=== PATIENT | female | born 1980 | race Caucasian/White ===

== ENCOUNTER 2022-07-01 11:18 | Day surgery (SDC) | payer MEDICAID ==
[~2022-07-01] VITALS: Ht 154.9 cm; Wt 61.8 kg
[~2022-07-01 11:18] MED LIST: BASAGLAR K100 UNIT/1 SQ; FLEXERIL5 MG PO; LEXAPRO 10MG10 MG PO; LIPITOR 40MG TA40 MG PO; NEURONTIN300 MG/CAP PO; NORCO 325 MG-51 TAB PO; NOVOLOGMIX70/30 SQ; PROAMATINE 5MG T5 MG PO
[2022-07-01] MEDS ORDERED: LANTUS SOLOS100 U/ML SQ (11:44)
[2022-07-01] MEDS ORDERED: INSULIN LI100 UNIT/2 SQ (11:44)
[2022-07-01] MEDS ORDERED: ZOFRAN 4MG T4 MG/TAB PO (11:45)
[2022-07-01 13:25] VITALS: BP 102/70; PULSE 73; TEMP 97.1
[2022-07-01 13:40] VITALS: BP 103/75; PULSE 63
[2022-07-01 13:55] VITALS: BP 103/70; PULSE 61
--- NOTE | 2022-07-01 14:20 | NUR ---
1325-PT TO BAY 3 PER CART FROM PROCEDURE ROOM. RECEIVED REPORT. VS OBTAINED. CALL LIGHT WITH IN REACH. PT DENIES ANY NEEDS AT THIS TIME. 1340-PT TOLERATING JUICE, MUFFIN, AND PUDDING. 1345-DR HARMAN IN ROOM DISCUSSING FINDINGS FROM PROCEDURE WITH PT AND HER . 1410-IV DC'D AT THIS TIME. PT ABLE TO DRESS SELF WITHOUT ANY ASSISTANCE. 1415-DISCHARGE EDUCATION COMPLETED WITH PT AND HER . VERBALIZED UNDERSTANDING OF HOME AND FOLLOW UP CARE. ALL QUESTIONS ANSWERED. DISCHARGE PAPERWORK GIVEN TO PT. 1420-PT OFF UNIT PER WHEELCHAIR. PT DISCHARGED TO HOME WITH PER PERSONAL VEHICLE.
[2022-07-01 14:25] VITALS: BP 108/77; PULSE 73; TEMP 97.4
== END 2022-07-01 14:20 | disposition home or self-care (01) ==
LOC: SDCO 11:18
DX: K29.70 Gastritis, unspecified, without bleeding (principal); K64.0 First degree hemorrhoids; K59.00 Constipation, unspecified; E10.43 Type 1 diabetes mellitus with diabetic autonomic (poly)neuropathy; K31.84 Gastroparesis
CPT/HCPCS: J2704; J7120

== ENCOUNTER → 2023-07-15 | Outpatient (CLI) | payer MEDICAID ==
[~2023-07-15] MED LIST changes: +INSULIN LI100 UNIT/2 SQ; +LANTUS SOLOS100 U/ML SQ; +ZOFRAN 4MG T4 MG/TAB PO
== END ==
LOC: MC.RAD 13:36
DX: Z12.31 Encounter for screening mammogram for malignant neoplasm of breast (principal); N64.4 Mastodynia

== ENCOUNTER 2023-09-11 15:34 | Emergency (ER) | payer MEDICAID ==
[~2023-09-11] VITALS: Ht 160 cm; Wt 62.3 kg
[2023-09-11 15:44] VITALS: TEMP 98.6
[2023-09-11] MEDS ORDERED: Morphine 4 MG/ML VIAL IV ONE (18:00)
[2023-09-11] MEDS ORDERED: NS 1,000 ML IV ONE (18:00)
[2023-09-11] MEDS ORDERED: Ondansetron 4 MG/2 ML VIAL IV ONE (18:00)
[2023-09-11 18:02] LABS: BASO % 0.6 % (0.0-2.0); EOS # 0.1 K/mm3 (0.0-0.7); EOS % 1.3 % (0.0-4.0); GRAN # 2.6 K/mm3 (1.4-6.5); GRAN % 49.7 % (42.2-75.2); HEMATOCRIT 39.4 % (37.0-47.0); HEMOGLOBIN 13.9 g/dl (12.5-16.0); LYMPH % 37.8 % (20.0-51.0); MEAN CELL VOLUME 87 fl (80.0-100.0); MEAN CORPUSCULAR HEMOGLOBIN 31 pg (27-31); MEAN CORPUSCULAR HGB CONC 35 g/dl (33.0-37.0); MEAN PLATELET VOLUME 9.1 fl (7.4-10.4); MONO # 0.6 K/mm3 (0.1-0.6); MONO % 10.4 % (1.7-9.3); PLATELET COUNT 196 K/mm3 (130-400); RED BLOOD COUNT 4.55 M/mm3 (4.10-5.30); REDCELL DISTRIBUTION WIDTH-CV 12.1 % (11.5-14.5)
[2023-09-11 18:04] LABS: PH 5.5 (5.0-8.5); URINE APPEARANCE CLEAR (CLEAR/HAZY); URINE BLOOD NEGATIVE (NEGATIVE); URINE COLOR YELLOW (YELLOW); URINE GLUCOSE 3+ (NEGATIVE); URINE KETONE NEGATIVE (NEGATIVE); URINE NITRATE NEGATIVE (NEGATIVE); URINE PROTEIN(semi-quant) NEGATIVE (NEGATIVE); URINE UROBILINOGEN 0.2 E.U/dL (0.2-1.0)
[2023-09-11 18:11] LABS: COLLECTION METHOD CLEAN CATCH
[2023-09-11 18:23] LABS: ALBUMIN 3.7 g/dL (3.5-5.0); BILIRUBIN,TOTAL 0.3 mg/dL (0.2-1.2); C-REACTIVE PROTEIN 0.32 mg/dL (0.00-0.50); CALCIUM 9.9 mg/dL (8.4-10.2); CREATININE, serum 0.8 mg/dL (0.57-1.11); POTASSIUM 3.9 mEq/L (3.5-4.5); TOTAL PROTEIN 7.4 g/dl (6.2-8.1)
[2023-09-11] MEDS ORDERED: Iohexol 300 - 100 ML VIAL IV ONE (19:04)
[2023-09-11] MEDS ORDERED: NS 100 ML IV SCH (19:04)
[2023-09-11 19:30] VITALS: BP 125/81; PULSE 58
[2023-09-11] MEDS ORDERED: Home Ondansetron ODT 4 MG #2 ODT/PACK PO ONE (19:30)
[2023-09-11] MEDS ORDERED: Home HYDROcodone/Acetaminophen 5/325 MG #4 TABS/PACK PO ONE (19:30)
== END 2023-09-11 19:30 | disposition home or self-care (01) ==
LOC: COL.ER 15:34
PROVIDERS: Nurse Practitioner
DX: R10.9 Unspecified abdominal pain (principal)
CPT/HCPCS: J2270; J2405; J7030; Q9967